=== PATIENT | female | born 1960 | race Hispanic/Latino ===

== ENCOUNTER 2018-10-04 17:00 | Emergency (ER) | payer BC ==
[2018-10-04] MEDS ORDERED: Meclizine HCl 25 MG TAB ONE (17:52)
[2018-10-04] MEDS ORDERED: Dexamethasone 4 MG TAB ONE (17:52)
== END 2018-10-04 18:05 | disposition home or self-care (01) ==
LOC: MADERS 17:00
DX: H81.399 Other peripheral vertigo, unspecified ear (principal); F41.9 Anxiety disorder, unspecified; F31.9 Bipolar disorder, unspecified
CPT/HCPCS: 99283; J8540

== ENCOUNTER 2020-09-03 12:18 | Outpatient (CLI) | payer BC | END 2020-09-03 12:19 | disposition home or self-care (01) | LOC: MADLAB 12:18 | PROVIDERS: ATTEND Family Medicine | DX: M25.562 Pain in left knee (principal); M25.461 Effusion, right knee; M17.0 Bilateral primary osteoarthritis of knee ==

== ENCOUNTER 2021-12-29 11:11 | Emergency (ER) | payer BC | END 2021-12-29 12:02 | disposition home or self-care (01) | LOC: MADERS 11:11 | DX: B02.9 Zoster without complications (principal); I10 Essential (primary) hypertension | CPT/HCPCS: 99282 ==

== ENCOUNTER 2022-02-10 12:49 | Outpatient (CLI) | payer BC ==
[2022-02-10 13:03] LABS: #Basophils 0.1 thou/uL (0.0-0.2); #Eosinphils 0.2 thou/uL (0.0-0.7); #Lymphocytes 1.3 thou/uL (1.20-3.40); #Monocytes 0.4 thou/uL (0.11-0.59); #Neutrophils 2.9 thou/uL (1.40-6.50); %Basophils 1.3 % (0.0-1.0); %Eosinophils 3.4 % (0.0-10.0); %Lymphocytes 27.5 % (21.0-51.0); %Monocytes 7.4 % (0.0-10.0); %Neutrophils 60.4 % (42.0-75.0); Hemoglobin 12.5 g/dL (12.0-16.0); Mean Corpuscular HGB CONC 31.3 g/dL (32.0-36.0); Mean Corpuscular Hemoglobin 29.9 pg (27.0-31.0); Mean Corpuscular Volume 95.5 fL (78.0-98.0); Mean Platelet Volume 13.4 fL (7.4-10.4); Platelet Count 159 thou/uL (130-400); RBC Distribution Width 12.3 % (11.5-14.5); Red Blood Cell (RBC) Count 4.16 mill/uL (4.20-5.40); White Blood Cell (WBC) Count 4.7 thou/uL (4.8-10.8)
[2022-02-10 13:12] LABS: ALT (SGPT) 46 U/L (8-55); AST (SGOT) 24 U/L (5-34); Albumin 4.1 g/dL (3.5-5.0); Alkaline Phosphatase 109 U/L (40-110); Anion Gap 10 mmol/L (10-20); BUN (Urea Nitrogen) 18 mg/dL (9.8-20.1); Bilirubin, Total 0.3 mg/dL (0.2-1.2); Calc. Creatinine Clearance 0 mL/min (70-130); Calcium 9.7 mg/dL (7.8-10.44); Carbon Dioxide 29 mmol/L (22-29); Cardiac Risk 3.5 (Less than 4.5); Chloride 107 mmol/L (98-107); Cholesterol 177 mg/dl (< 200 Desired); Estimated GFR 100; Globulin 3.2 g/dL (2.4-3.5); Glucose 118 mg/dL (70-105); HDL Cholesterol 51 mg/dL (>60 Neg Risk); LDL Cholesterol, Calculated 99 mg/dL; Potassium 4.5 mmol/L (3.5-5.1); Protein, Total 7.3 g/dL (6.0-8.3); Sodium 141 mmol/L (136-145); Triglycerides 133 mg/dL (Less than 150)
[2022-02-10 13:56] LABS: Thyroid Stimulating Hormone 2.1066 uIU/mL (0.35-4.94)
[2022-02-10 15:24] LABS: Giant Platelets SLIGHT; Large Platelets SLIGHT; Platelet Morphology Comment Appears Adequate
[2022-02-10 16:31] LABS: Hemoglobin A1c 6.2 % (4.0-6.0)
[2022-02-10 16:50] LABS: Vitamin D, 25 Hydroxy 15.3 ng/ml (> 30.0)
== END 2022-02-10 12:50 | disposition home or self-care (01) ==
LOC: MADLABBHPM 12:49 → MADLAB 12:50
PROVIDERS: ATTEND Family Medicine
DX: Z00.00 Encounter for general adult medical examination without abnormal findings (principal)
CPT/HCPCS: 80053; 80061; 82306; 83036; 84443; 85025

== ENCOUNTER 2024-01-07 19:52 | Emergency (ER) | payer BC ==
[2024-01-07] MEDS ORDERED: Meclizine HCl 25 MG TAB ONE (20:45)
== END 2024-01-07 21:44 | disposition home or self-care (01) ==
LOC: MADERS 19:52
DX: H81.399 Other peripheral vertigo, unspecified ear (principal); I10 Essential (primary) hypertension; Z79.899 Other long term (current) drug therapy
CPT/HCPCS: 99283